=== PATIENT | male | born 1990 | race African-American/Black ===

== ENCOUNTER 2021-12-07 10:20 | Emergency (ER) | payer SELFPAY ==
[~2021-12-07] VITALS: Ht 170.2 cm; Wt 83.0 kg
[2021-12-07] MEDS ORDERED: IBUPROFEN 600MG TABLET PO ONE (14:15)
[2021-12-07] MEDS ORDERED: IBUP-2029 MT (15:09)
[2021-12-07 15:46] VITALS: BP 136/76
== END 2021-12-07 15:48 | disposition home or self-care (01) ==
LOC: ER 10:20
DX: S80.812A Abrasion, left lower leg, initial encounter (principal); V18.0XXA Pedal cycle driver injured in noncollision transport accident in nontraffic accident, initial encounter; Y93.89 Activity, other specified; Y92.488 Other paved roadways as the place of occurrence of the external cause
CPT/HCPCS: 29515; 73590; 73610; 99284